=== PATIENT | male | born 1945 | race Caucasian/White ===

== ENCOUNTER 2018-05-20 15:59 | Emergency (ER) | payer MEDICARE, OTHER, SELFPAY ==
[2018-05-20 17:05] VITALS: BP 170/86; PULSE 87; RESP 18; TEMP 37.3; O2SAT 96; BMI 36.0
--- NOTE | 2018-05-20 17:10 | HMH.EDUTC ---
[facility] [place] Disposition Clinical Impression: Bronchitis Disposition: Home, Self-Care Condition on Discharge: Good Instructions: Acute Bronchitis, Cough, DI for Acute Bronchitis Additional Instructions: Drink plenty of fluids. Take tylenol if you have fever or body aches. Take the antibiotics and steroids as directed. The cough medication will make you drowsy, so don't be driving after taking it. Go to your regular doctor if you are not getting better in 24 to 48 hours. GO TO THE ER FOR ANY WORSENING OR LIFE THREATENING SYMPTOMS Prescriptions: Promethazine/Dextromethorphan [Promethazine-Dm Syrup] 5 ml PO Q6HP PRN #120 syrup PRN Reason: Cough Azithromycin [Z-Sushil 250mg Tab] 250 mg PO UD DOSE PK #6 tab methylPREDNISolone [Medrol] 4 mg PO DIRECTED 6 Days #21 tab.[email or web address] Referrals: Lamberto Hammonds MD [Primary Care Provider] - Time of Disposition: 17:14 Medical Decision Making - Medical Records Medical records reviewed: No: I reviewed the patient's medical records. - [place] Inquiry Pt receiving controlled substance: No [place] was queried for this patient: No Vital Signs: 05/20/18 17:05 05/20/18 17:15 Temperature 99.1 F 99.0 F Temperature Source Oral Oral Pulse Rate 83 Pulse Rate [Right Radial] 87 Respiratory Rate 18 20 Blood Pressure 162/81 H Blood Pressure [Right Arm] 170/86 H Blood Pressure Mean [Right Arm] 114 02 Sat by Pulse Oximetry 96 Oxygen Delivery Method Room Air Room Air - Lab Data Lab results reviewed: Yes: I reviewed the patient's lab results. [facility] [place] HPI - General Stated complaint: cough Time Seen by Provider: 05/20/18 17:00 - History of Present Illness Provider Complaint: He c/o 3 days of a cough with a small amount of yellowish sputum. He denies any sore throat or ear pain, but does have some sinus drainage and congestion. His appetite is decreased also. He has been taking otc meds with no relief. - Related Data Previous Rx's Medication Instructions Recorded Azithromycin [Z-Sushil 250mg Tab] 250 mg PO UD DOSE PK #6 tab 05/20/18 Promethazine/Dextromethorphan 5 ml PO Q6HP PRN #120 syrup 05/20/18 [Promethazine-Dm Syrup] methylPREDNISolone [Medrol] 4 mg PO DIRECTED 6 Days #21 05/20/18 tab.[email or web address] Allergies Allergy/AdvReac Type Severity Reaction Status Date / Time No Known Allergies Allergy Verified 05/20/18 16:38 [facility] History - Hepatitis A Screen Attestation statement:: This patient has been screened for Hepatitis A risk factors. I have reviewed the patient's past medical history: Yes - Social History Smoking Status: Never smoker Alcohol Intake: never Occupational Status: retired - Psychiatric History Expresses thoughts of harming self/others: None Suicide Plan Description: No Plan ROS Obtained: Yes All systems reviewed & no additional complaints - Constitutional Constitutional: Denies body ache, Denies chills, Reports fatigue, Denies fever(s), Reports poor appetite - Eyes Eyes: Denies change in vision, Denies eye discharge - ENT Ears, Nose, Mouth, and Throat: Denies otalgia, Reports nasal congestion, Reports nasal discharge, Denies sore throat - Cardiovascular Cardiovascular: Denies chest pain - Respiratory Respiratory: Yes chest congestion, Yes cough, No dyspnea, No coughing up blood, No stridor, No wheezing - Gastrointestinal Gastrointestingal: Reports: nausea. Denies: abdominal pain, diarrhea, vomiting - Integumentary/Breasts Skin/Breast: Denies rash Physical Exam - General General appearance: alert, in no apparent distress - Head Head exam: atraumatic, normocephalic, normal inspection - Eye Eye exam: Present: normal appearance, PERRL, EOMI - Expanded ENT Exam TM/Canal exam: Bilateral TM: erythema Nose exam: Absent: sinus tenderness Mouth exam: Present: normal external inspection Teeth exam: Present: normal inspection Throat exam: Present: tonsillar erythema. Absent: tonsillomegaly, tonsillar exudate -
--- NOTE | 2018-05-20 17:14 | ED_ITS ---
[facility] Disposition Clinical Impression: Bronchitis Disposition: Home, Self-Care Condition on Discharge: Good Instructions: Acute Bronchitis, Cough, DI for Acute Bronchitis Additional Instructions: Drink plenty of fluids. Take tylenol if you have fever or body aches. Take the antibiotics and steroids as directed. The cough medication will make you drowsy, so don't be driving after taking it. Go to your regular doctor if you are not getting better in 24 to 48 hours. GO TO THE ER FOR ANY WORSENING OR LIFE THREATENING SYMPTOMS Prescriptions: Promethazine/Dextromethorphan [Promethazine-Dm Syrup] 5 ml PO Q6HP PRN #120 syrup PRN Reason: Cough Azithromycin [Z-Sushil 250mg Tab] 250 mg PO UD DOSE PK #6 tab methylPREDNISolone [Medrol] 4 mg PO DIRECTED 6 Days #21 tab.ds.pk Referrals: Lamberto Hammonds MD [Primary Care Provider] - Time of Disposition: 17:14 Medical Decision Making - Medical Records Medical records reviewed: No: I reviewed the patient's medical records. - [place] Inquiry Pt receiving controlled substance: No [place] was queried for this patient: No Vital Signs: 05/20/18 17:05 05/20/18 17:15 Temperature 99.1 F 99.0 F Temperature Source Oral Oral Pulse Rate 83 Pulse Rate [Right Radial] 87 Respiratory Rate 18 20 Blood Pressure 162/81 H Blood Pressure [Right Arm] 170/86 H Blood Pressure Mean [Right Arm] 114 02 Sat by Pulse Oximetry 96 Oxygen Delivery Method Room Air Room Air - Lab Data Lab results reviewed: Yes: I reviewed the patient's lab results. [facility] HPI - General Stated complaint: cough Time Seen by Provider: 05/20/18 17:00 - History of Present Illness Provider Complaint: He c/o 3 days of a cough with a small amount of yellowish sputum. He denies any sore throat or ear pain, but does have some sinus drainage and congestion. His appetite is decreased also. He has been taking otc meds with no relief. - Related Data Previous Rx's Medication Instructions Recorded Azithromycin [Z-Sushil 250mg Tab] 250 mg PO UD DOSE PK #6 tab 05/20/18 Promethazine/Dextromethorphan 5 ml PO Q6HP PRN #120 syrup 05/20/18 [Promethazine-Dm Syrup] methylPREDNISolone [Medrol] 4 mg PO DIRECTED 6 Days #21 05/20/18 tab.[email or web address] Allergies Allergy/AdvReac Type Severity Reaction Status Date / Time No Known Allergies Allergy Verified 05/20/18 16:[address] [facility] History - Hepatitis A Screen Attestation statement:: This patient has been screened for Hepatitis A risk factors. I have reviewed the patient's past medical history: Yes - Social History Smoking Status: Never smoker Alcohol Intake: never Occupational Status: retired - Psychiatric History Expresses thoughts of harming self/others: None Suicide Plan Description: No Plan ROS Obtained: Yes All systems reviewed & no additional complaints - Constitutional Constitutional: Denies body ache, Denies chills, Reports fatigue, Denies fever(s), Reports poor appetite - Eyes Eyes: Denies change in vision, Denies eye discharge - ENT Ears, Nose, Mouth, and Throat: Denies otalgia, Reports nasal congestion, Reports nasal discharge, Denies sore throat - Cardiovascular Cardiovascular: Denies chest pain
[2018-05-20 17:15] VITALS: BP 162/81; PULSE 83; RESP 20; TEMP 37.2; O2SAT 97
== END 2018-05-20 17:16 | disposition home or self-care (01) ==
PROVIDERS: Emergency Provider Nurse Practitioner Family; PCP Family Medicine
DX: J20.9 Acute bronchitis, unspecified (principal)
CPT/HCPCS: G0463; 99201

== ENCOUNTER → 2020-09-17 09:01 | Outpatient (CLI) | payer MEDICARE, OTHER, SELFPAY ==
--- NOTE | 2020-09-17 09:07 | XR_ITS ---
PROCEDURE: XR CHEST 2V CLINICAL HISTORY: COUGH COMPARISON: No exams were available for comparison FINDINGS: The cardiomediastinal silhouette and pulmonary vascularity are within normal limits. Mild left basilar scar versus atelectasis. Lungs otherwise clear. No acute bony abnormalities. IMPRESSION: Mild left basilar scar versus atelectasis. Otherwise unremarkable two-view chest. Dictated by: Xavier Barber MD 09/17/2020 09:41 Xavier Barber MD in [place] 09/17/2020 09:41
== END ==
PROVIDERS: PCP Nurse Practitioner Family; Visit Provider Nurse Practitioner Family
DX: R05 Cough (principal)
CPT/HCPCS: 71046

== ENCOUNTER → 2020-10-13 13:32 | Outpatient (CLI) | payer MEDICARE, OTHER, SELFPAY | PROVIDERS: PCP Nurse Practitioner Family; Visit Provider Nurse Practitioner Family | DX: R05 Cough (principal) | CPT/HCPCS: 94060 ==

== ENCOUNTER → 2020-12-28 14:45 | Outpatient (CLI) | payer MEDICARE, OTHER, SELFPAY ==
--- NOTE | 2020-12-28 14:46 | CT_ITS ---
PROCEDURE: CT HR CHEST X3 CLINICAL HISTORY: Persistent cough with history of bronchitis COMPARISON: No exams were available for comparison TECHNIQUE: Axial images obtained with sagittal and coronal reformats. All CT scans at the facility use one or more dose reduction, viz: automated exposure control, ma/kV adjustment per patient size (including targeted exams where dose is matched to indication, i.e. head), or iterative reconstruction technique. FINDINGS: No mediastinal mass or adenopathy. Coronary artery calcifications are present. There is a small subpleural opacity in the right middle lobe anteriorly 3 mm. Calcified granuloma is present in the left lower lobe. An irregular nodular opacity is present in the lung base laterally and anteriorly within the lingula in the subpleural region measuring approximately 9 mm. This could be due to an area of parenchymal scarring. No effusions or infiltrates are evident. There is some minimal scarring in the right lower lobe anteriorly High-resolution images are obtained in the supine, prone, and expiration phase. There are degenerative changes in the thoracic spine. There is mild gynecomastia. Upper abdominal images show cholelithiasis IMPRESSION: 1. No evidence of a interstitial fibrotic changes or bronchiectasis. No acute finding. 2. 9 mm irregular nodular opacity in the lingula. This may be due to scarring or small developing nodule. Six-month follow-up suggested to confirm stability Dictated by: Jc Kelly MD 01/02/2021 14:48 Jc Kelly MD in [facility] 01/02/2021 14:48
== END ==
PROVIDERS: PCP Family Medicine; Visit Provider Internal Medicine Pulmonary Disease
DX: R06.02 Shortness of breath (principal)
CPT/HCPCS: 71250

== ENCOUNTER → 2021-01-12 10:42 | Outpatient (CLI) | payer MEDICARE, OTHER, SELFPAY ==
--- NOTE | 2021-01-12 10:42 | FL_ITS ---
PROCEDURE: FL BARIUM SWALLOW MODIFIED CLINICAL INDICATION: aSPIRATION COMPARISON: No exams were available for comparison TECHNIQUE: Patient administered varying consistencies of barium contrast, while viewed in lateral position under real-time fluoroscopy with cine recording. FLUOROSCOPY TIME:2 minutes and 9 seconds The study was performed in conjunction with speech pathologist. Please see that report & recommendations. FINDINGS: Patient was given varying consistencies of barium. No aspiration or penetration.. Minimal residual which improved with dry swallow. IMPRESSION: Unremarkable modified barium swallow. Please see speech pathologist report and recommendations. Dictated by: Jc Kelly MD 01/18/2021 08:49 Jc Kelly MD in [facility] 01/18/2021 08:49
--- NOTE | 2021-01-12 11:51 | HMH.SLMBS2 ---
Speech & Language Evaluation Speech/Language Mod Barium Swallow Start: 01/12/21 11:45 Freq: once Status: Complete Protocol: Document 01/12/21 11:45 DOMONIQUE (Rec: 01/12/21 11:51 DOMONIQUE [id number]) General Information General Current Food Consistancy Regular,Thin Liquids Dentition Good Dentition Oxygen Status Room Air Facial Symmetry Symmetrical Patient Orientation Person,Place,Time,Situation Ability to Follow Directions Excellent Communication Ability No Impairment MBS Recommendations Diet Dietary Recommendations Regular,Thin Liquids Treatment/Strategies Strategy/Precaution Recommend Sitting Upright (90 deg), Double Swallow,Small Bites and Sips,Alternate Liquids/Solids Mod Barium Swallow Impressions Summary and Impressions Oral Phase Impression No Impairment (WFL) Oral Phase Summary Mr. Colindres was given the following consistencies: thins via straw and open cup, pudding, mechanical soft, regular, pill with thin wash. No oral phase impairments noted during evaluation. Pharyngeal Phase Impression Minimal Impairment Pharyngeal Phase Summary Mr. Colindres exhibited vallecular residue with all thin trials. He was instructed to utilize the compensatory strategy of dry swallow which improved the vallecular residue. Speech/Language MBS Assessment/Goals/Plan Assessment Date of Evaluation: 01/12/21 Evaluation Type Initial Certification Assessment/Problems Dysphagia Does Patient Qualify for Service No Qualify/Failure Comment Mr. Colindres will utilize the dry swallow and report back if swallow at home does not improve. Plan Pt/Guardian verbally ack understanding Yes of dx/prognosis/goals G -code Required No Mod Barium Swallow Setup Exam Setup Radiologist Jc Kelly Level of Consciousness Awake,Alert,Appropriate, Follows Commands Position (degrees) 90 Mod Barium Swallow-Lat View Textures Lateral View Food Presentation Thin Liquid via Cup,Thin Liquid via Straw,Mech. Soft Food- Regular,Barium Tablet, Regular Food,Pudding Oral Phase Labial Closure No Impairment (WFL) Bolus Formation Pooling L/R No Impairmen
== END ==
PROVIDERS: PCP Family Medicine; Visit Provider Internal Medicine Pulmonary Disease
DX: K21.9 Gastro-esophageal reflux disease without esophagitis (principal); R05.3 Chronic cough; R06.00 Dyspnea, unspecified
CPT/HCPCS: 70371; 92611

== ENCOUNTER → 2021-09-24 08:18 | Outpatient (CLI) | payer MEDICARE, OTHER, SELFPAY ==
--- NOTE | 2021-09-24 08:19 | CT_ITS ---
FINAL REPORT TECHNIQUE: Axial images were obtained from the lung apex to the mid abdomen by computed tomography. Coronal reformatted images were obtained. This study was performed with techniques to keep radiation doses as low as reasonably achievable, (ALARA). Individualized dose reduction techniques using automated exposure control or adjustment of mA and/or kV according to the patient''s size were employed. CLINICAL HISTORY: 6 mth F/U COMPARISON: 12/28/2020 FINDINGS: There is no axillary adenopathy. There is no hilar or mediastinal adenopathy. Heart size is normal. There are small left coronary artery calcifications. There is no pericardial or pleural effusion. Limited images of the upper abdomen demonstrate multiple gallstones in the gallbladder. There is stable right adrenal calcification. There is mild bibasilar atelectasis or scarring. There has been partial improvement in the lingular opacity, which now appears to represent scarring. There is a stable pleural based nodule in the left lower lobe measuring 5 mm. A calcified granuloma is noted in the left lower lobe. There is no new mass or nodule. IMPRESSION: Stable to improved lung findings. Recommend continued follow-up in [address] to evaluate further stability of the left lower lobe nodule. Reviewed, Interpreted and Dictated by Hemal Carrillo III, MD Transcribed by Rosa Choi Authenticated and . [facility]
== END ==
PROVIDERS: PCP Internal Medicine Pulmonary Disease; Visit Provider Internal Medicine Pulmonary Disease
DX: R91.8 Other nonspecific abnormal finding of lung field (principal)
CPT/HCPCS: 71250

== ENCOUNTER → 2022-11-16 14:05 | Outpatient (CLI) | payer MEDICARE, OTHER, SELFPAY ==
--- NOTE | 2022-11-16 | CA_ITS ---
FINAL REPORT TECHNIQUE: Color Doppler, duplex Doppler and brady scale sonography of the bilateral neck arterial vasculature was performed. Velocities were measured in the carotid arteries. Stenosis evaluation based on the validated velocity criteria. CLINICAL HISTORY: .ABNORMALPANORAMIC SCAN AT DENTIST COMPARISON: None FINDINGS: The peak systolic velocity of the right common carotid artery is 76 cm/s. The peak systolic velocity of the right internal carotid artery is 95 cm/s and end diastolic velocity 23 cm/s. The ICA/CCA ratio is 1.3. A mild amount of plaque is present. The right external carotid artery is patent. The right vertebral artery is patent with antegrade flow. The peak systolic velocity of the left common carotid artery is 101 cm/s. The peak systolic velocity of the left internal carotid artery is 109 cm/s and end diastolic velocity 31 cm/s. The ICA/CCA ratio is 1.1. A mild amount of plaque is present. The left external carotid artery is patent.The left vertebral artery is patent with antegrade flow. IMPRESSION: Less than 50% bilateral carotid stenoses. Bilateral patent vertebral arteries with antegrade flow. If indicated, CTA or MRA could further evaluate. Reviewed, Interpreted and Dictated by Hemal Carrillo III, MD Transcribed by Rosa Choi Authenticated and [facility]
== END ==
PROVIDERS: PCP Nurse Practitioner Family; Visit Provider Nurse Practitioner Family
DX: I65.23 Occlusion and stenosis of bilateral carotid arteries (principal)
CPT/HCPCS: 93880

== ENCOUNTER → 2022-12-28 13:08 | Outpatient (CLI) | payer MEDICARE, OTHER, SELFPAY ==
[2022-12-28 12:52] LABS: Alanine Aminotransferase 33 U/L (12-78); Albumin Level 4.3 g/dl (3.5-5.0); Albumin/Globulin Ratio 1.2 (1.1-1.8); Alkaline Phosphatase 79 U/L (38-126); Anion Gap 15.4 mEq/L (5-15); Aspartate Amino Transferase 31 U/L (17-59); Bilirubin,Total 0.6 mg/dl (0.2-1.3); Blood Urea Nitrogen 17 mg/dl (9-20); Calcium 9.6 mg/dl (8.4-10.2); Carbon Dioxide 24 mmol/L (22.0-30.0); Chloride 106 mmol/L (98-107); Chol/HDL Ratio 8.3 (1-3.5); Cholesterol 200 mg/dl (140-200); Estimated Glomerular Filt Rate 72 ml/min (>60); GFR (African American) 88 ML/MIN (>60); Globulin 3.5 g/dL (1.3-3.2); Glucose 96 mg/dl (74-100); HDL Cholesterol 24 mg/dl (40-60); Potassium 4.4 mmoL/L (3.5-5.1); Sodium 141 mmol/L (136-145); Total Protein,Serum 7.8 g/dl (6.3-8.2); Triglycerides 220 mg/dl (30-150); VLDL Cholesterol 44 mg/dL (0-40)
[2022-12-28 13:23] LABS: Thyroid Stimulating Hormone 4.53 uIU/mL (0.465-4.68)
== END ==
PROVIDERS: PCP Internal Medicine; Visit Provider Internal Medicine
DX: Z00.00 Encounter for general adult medical examination without abnormal findings (principal); Z13.220 Encounter for screening for lipoid disorders; Z13.6 Encounter for screening for cardiovascular disorders; Z13.29 Encounter for screening for other suspected endocrine disorder; I10 Essential (primary) hypertension
CPT/HCPCS: 80053; 80061; 84443